=== PATIENT | male | born 1975 | race American Indian/Alaskan Native ===

== ENCOUNTER 2022-02-23 10:27 | Emergency (ER) | payer MEDICARE ==
[2022-02-23] MEDS ORDERED: HALOPERIDOL LACTATE 5 MG/1 ML INJ IM ONE (10:41)
[2022-02-23] MEDS ORDERED: diphenhydrAMINE 50 MG/ML VIAL IM ONE (10:42)
[2022-02-23] MEDS ORDERED: LORazepam 2 MG/ML VIAL IM ONE (10:45)
--- NOTE | 2022-02-23 15:06 | Emergency Department Report ---
ED Psych HPI - General Chief Complaint: Psych Stated Complaint: PSYCH Time Seen by Provider: 02/23/22 10:42 Source: patient, EMS Mode of arrival: Stretcher - History of Present Illness Initial Comments: Patient presents with having a psychotic episode patient was aggressive and threatening to attack other patients. History is limited due to patient's condition. - Related Data Allergies Allergy/AdvReac Type Severity Reaction Status Date / Time No Known Allergies Allergy Verified 02/23/22 10:34 ED Review of Systems ROS: Stated complaint: PSYCH Other details as noted in HPI Comment: Unobtainable due to pts medical conditions ED Physical Exam - General Limitations: No Limitations General appearance: alert, in no apparent distress - Head Head exam: Present: atraumatic, normocephalic - Eye Eye exam: Present: normal appearance - ENT ENT exam: Present: mucous membranes moist - Neck Neck exam: Present: normal inspection - Respiratory Respiratory exam: Present: normal lung sounds bilaterally. Absent: respiratory distress - Cardiovascular Cardiovascular Exam: Present: regular rate, normal rhythm. Absent: systolic murmur, diastolic murmur, rubs, gallop - GI/Abdominal GI/Abdominal exam: Present: soft, normal bowel sounds - Rectal Rectal exam: Present: deferred - Extremities Exam Extremities exam: Present: normal inspection - Back Exam Back exam: Present: normal inspection - Neurological Exam Neurological exam: Present: alert - Psychiatric Psychiatric exam: Present: agitated, anxious, homicidal ideation - Skin Skin exam: Present: warm, dry, intact, normal color. Absent: rash ED Medical Decision Making - Medical Decision Making Chief medical diagnosis: Psychosis Differential medical diagnosis substance-induced mood disorder, bipolar disorder I will get blood work signed [id number] and will have psych evaluate the patient Patient has been medically cleared and can await psych placement. Critical care attestation.: If time is entered above; I have spent that time in minutes in the direct care of this critically ill patient, excluding procedure time. ED Disposition Clinical Impression: Aggressive behavior Psychosis Qualifiers: Psychosis type: unspecified psychosis type Qualified Code(s): F29 - Unspecified psychosis not due to a substance or known physiological condition Disposition: [address] [place] [address] Is pt being admited?: No Does the pt Need Aspirin: No Condition: Stable Referrals: PRIMARY CARE, [Primary Care Provider] - 3-5 Days
[2022-02-23 15:11] LABS: Basophils % (Auto) 0.3 % (0.0-1.8); Eosinophils # (Auto) 0.1 K/mm3 (0.0-0.4); Eosinophils % (Auto) 0.5 % (0.0-4.3); Hematocrit 49.2 % (35.5-45.6); Hemoglobin 15.9 gm/dl (11.8-15.2); Lymphocytes # (Auto) 1.8 K/mm3 (1.2-5.4); Mean Corpuscular HGB Conc 32 % (32-34); Mean Corpuscular Volume 93 fl (84-94); Monocytes % (Auto) 7.7 % (0.0-7.3); Platelet Count 230 K/mm3 (140-440); Red Blood Count 5.26 M/mm3 (3.65-5.03); Red Cell Distribution Width 14.6 % (13.2-15.2)
[2022-02-23 16:05] LABS: BUN/Creatinine Ratio 9; Blood Urea Nitrogen 11 mg/dL (9-20); Calcium 10.4 mg/dL (8.4-10.2); Hemolysis Index 73
--- NOTE | 2022-02-23 16:41 | Consultation ---
History of Present Illness - Reason for Consult Consult date: 02/23/22 Reason for consult: MHE - History of Present Psychiatric Illness Admission Note 46 year old Africn Malagasy was seen today in the ER. Patient states that he "felt my brain was about to snap". Patient states he feels kind of "unstable" at this time. Patient has a past dx of Schizoaffective disorder Bipolar type and takes risperdal. Patient will be admitted to inpatient for psychiatric evaluation and medication management. HPI PAST PSYCHIATRIC HISTORY: Diagnoses: Schizoaffective Disorder Suicide attempts or Self-harm behavior Prior psychiatric hospitalizations Substance Abuse history: Marijuana Previous psychiatric medications tried: Risperdal Outpatient treatment: PAST MEDICAL HISTORY: Family Psychiatric History None reported or documented SOCIAL HISTORY Marital Status: Single Living Arrangements: Alone Employment Status: Unemployed Access to guns/weapons: Denies Education: History of Abuse: Legal History: REVIEW OF SYSTEMS Constitutional: Negative for weight loss ENT: Negative for stridor Respiratory: Negative for cough or hemoptysis All other systems reviewed and are negative Diagnoses: Schizoaffective Disorder Treatment Plan Patient will be admitted for inpatient psychiatric evaluation, medication adjustment and close monitoring The patient's behavior, mood, sleep and appetite will be closely monitored. Patient will be enrolled in individual and group therapeutic sessions and encouraged to attend. Patient will be provided with a safe and structured environment. Patient's physical health needs will be addressed by the Hospitalist. Hospitalist Consulted Labs including CBC, CMP, Lipid profile and Hemoglobin A1C ordered Social Assessment will be completed and the Physical Education Instructor will work with patient and family to ensure a suitable and safe disposition Medication adjustment will be made as clinically indicated Usual Wellness Hinduism/Preservation: - Start Trazodone 50 mg po QHS The patient agreed on the treatment plan, understood the risk, benefit, alternative treatment, potential consequence of no treatment, and gave informed consent. Medications and Allergies Allergies Allergy/AdvReac Type Severity Reaction Status Date / Time No Known Allergies Allergy Verified 02/23/22 10:34 Results Result Diagrams: 02/23/22 14:37 02/23/22 14:37 Abnormal lab results 02/23/22 Range/Units 14:37 WBC 13.1 H (4.5-11.0) K/mm3 RBC 5.26 H (3.65-5.03) M/mm3 Hgb 15.9 H (11.8-15.2) gm/dl Hct 49.2 H (35.5-45.6) % Wake % (Auto) 7.7 H (0.0-7.3) % Wake # (Auto) 1.0 H (0.0-0.8) K/mm3 Seg Neutrophils % 77.5 H (40.0-70.0) % Seg Neutrophils # 10.2 H (1.8-7.7) K/mm3 All other labs normal.
[2022-02-23] MEDS ORDERED: traZODone 50 MG TAB PO PRN (22:00)
--- NOTE | 2022-02-24 16:19 | Progress Note ---
Subjective - Reason for Consult Reason for consult: MHE - Chief Complaint Chief complaint: Subjective - DATE SEEN: 02/24/22 Patient seen today and states he is " Feeling much better today"Patient states that his medications had been changed from zyprexa to risperdal in August and the risperdal is like taking "decaffeinated coffee" That is why he started to take Marijuana and alcohol to help him sleep. Patient states that he was also having problems with is mother that " Masquerades as a nice old lady". Patient stated that he was able to sleep during the night because of the Trazodone given. Patient denies any SI/HI/at this time.Patient also denies hearing voices or seeing things at this time. Patient waiting for placement and medication reconciliation Mental Status Exam - Vital signs Last Vital Signs Temp 98.6 F 02/23/22 21:12 Pulse 98 H 02/23/22 21:12 Resp 20 02/23/22 21:12 BP 130/96 02/23/22 21:12 Pulse Ox 99 02/24/22 11:11
[2022-02-24 16:23] LABS: Bilirubin,Urine NEG (Negative); Blood,Urine NEG (Negative); Color,Urine Yellow (Yellow); Protein,Urine <15 mg/dL mg/dL (Negative); Urobilinogen,Urine < 2.0 mg/dL (<2.0)
[2022-02-24 16:33] LABS: Amphetamine Screen,Urine Negative; Benzodiazepines Screen,Urine Negative; Cocaine Screen,Urine Negative; Methadone Screen,Urine Negative; Opiate Screen,Urine Negative
[2022-02-24 16:39] LABS: Hyaline Casts,Urine 1 /LPF; Mucus,Urine FEW /HPF
[2022-02-24 17:10] LABS: Cannabinoid Screen,Urine Positive
[2022-02-25 09:57] LABS: Basophils # (Auto) 0.1 K/mm3 (0.0-0.1); Basophils % (Auto) 1.1 % (0.0-1.8); Eosinophils % (Auto) 0.3 % (0.0-4.3); Hematocrit 48.1 % (35.5-45.6); Hemoglobin 16.2 gm/dl (11.8-15.2); Lymphocytes # (Auto) 1.7 K/mm3 (1.2-5.4); Mean Corpuscular HGB Conc 34 % (32-34); Mean Corpuscular Volume 92 fl (84-94); Monocytes # (Auto) 0.8 K/mm3 (0.0-0.8); Platelet Count 248 K/mm3 (140-440); Red Blood Count 5.22 M/mm3 (3.65-5.03)
[2022-02-25] MEDS ORDERED: LORazepam 2 MG/ML VIAL IM PRN (12:39)
[2022-02-25] MEDS ORDERED: HALOPERIDOL LACTATE 5 MG/1 ML INJ IM PRN (12:39)
--- NOTE | 2022-02-25 12:39 | Event Note ---
Date: 02/25/22 The patient was evaluated in the emergency department for symptoms described in the history of present illness. He/she was evaluated in the context of the global COVID-19 pandemic, which necessitated consideration that the patient might be at risk for infection with the virus that causes COVID-19. Institutional protocols and algorithms that pertain to the evaluation of patients at risk for COVID-19 are in a state of rapid change based on information released by regulatory bodies including the CDC and federal and state organizations. These policies and algorithms were followed during the patient's care in the emergency department. Please note that these policies, procedures and recommendations changed on a rapid basis. Laboratory studies, vital signs, nursing documentation, ER documentation, and psychiatric documentation are reviewed and appreciated. Nursing team reports no acute events this morning or concerns. We will request repeat vital signs given documented heart rate of 125 bpm. The patient is awake and not in any acute distress The patient was deemed medically suitable for psychiatric disposition and placement during his initial ER evaluation. The patient continues to remain medically suitable for psychiatric placement and disposition. He is currently pending psychiatric placement. Vital Signs 02/23/22 02/24/22 02/24/22 21:12 11:11 17:26 Temperature 98.6 F Pulse Rate 98 H 88 Respiratory 20 18 Rate Blood Pressure 130/96 142/92 [Left] O2 Sat by Pulse 97 99 99 Oximetry 02/25/22 02/25/22 08:58 08:59 Temperature 98.2 F Pulse Rate 125 H Respiratory 18 Rate Blood Pressure 137/86 [Left] O2 Sat by Pulse 97 97 Oximetry Tachycardia is improved at 12: 52 PM, on February 25, 2022. Patient remains medically suitable for psychiatric placement and disposition at this time
[2022-02-25 12:44] VITALS: BP 113/80
--- NOTE | 2022-02-25 15:07 | Progress Note ---
Subjective - Reason for Consult Reason for consult: MHE - Chief Complaint Chief complaint: Subjective DATE SEEN: 02/25/22 Patient seen today. Denies any SI/HI. denies auditory and visual hallucinations at this time. Patient was started on Trazadone which he states is helping him sleep better. - DATE SEEN: 02/24/22 Patient seen today and states he is " Feeling much better today"Patient states that his medications had been changed from zyprexa to risperdal in August and the risperdal is like taking "decaffeinated coffee" That is why he started to take Marijuana and alcohol to help him sleep. Patient states that he was also having problems with is mother that " Masquerades as a nice old lady". Patient stated that he was able to sleep during the night because of the Trazodone given. Patient denies any SI/HI/at this time.Patient also denies hearing voices or seeing things at this time. Patient waiting for placement and medication reconciliation Mental Status Exam - Vital signs Last Vital Signs Temp 98.5 F 02/25/22 12:43 Pulse 83 02/25/22 12:43 Resp 18 02/25/22 12:43 BP 113/80 02/25/22 12:43 Pulse Ox 97 02/25/22 12:43
== END 2022-02-25 16:44 | disposition home or self-care (01) ==
LOC: EEVIPCON 10:27 → ED 10:27
DX: F29 Unspecified psychosis not due to a substance or known physiological condition (principal); F91.1 Conduct disorder, childhood-onset type; Z20.822 Contact with and (suspected) exposure to COVID-19; Z79.899 Other long term (current) drug therapy
CPT/HCPCS: 36415; 80048; 80307; 81001; 85025; 96372; 99284; J1200; J1630; J2060; U0003; 80320; G0480